=== PATIENT | female | born 1955 | race African-American/Black ===

== ENCOUNTER 2018-04-22 19:58 | Emergency (ER) | payer MEDICARE, OTHER ==
[2018-04-22 20:38] LABS: ADD MAN DIFF? NO
[2018-04-22] MEDS: SOD CHLORIDE 0.9% 1,000 ML IV (20:38)
[2018-04-22 20:40] LABS: BASOPHILS % 0.3 % (0.0-2.0); EOSINOPHILS # 0.1 10^3/ul (0.0-0.5); HEMATOCRIT 35.3 % (37.0-47.0); LYMPHOCYTES # 1.3 10^3/ul (0.8-2.9); MEAN CORPUSCULAR HEMOGLOBIN 25.2 pg (29.0-33.0); MEAN CORPUSCULAR HGB CONC 31.2 g/dl (32.0-37.0); MEAN PLATELET VOLUME 10.2 fl (7.4-10.4); MONOCYTE # 0.5 10^3/ul (0.3-0.9); NEUTROPHIL # 5.1 10^3/ul (1.6-7.5); NEUTROPHILS % 72.3 % (39.0-77.0); PLATELET COUNT 300 10^3/UL (140-415); RED BLOOD COUNT 4.36 10^6/ul (4.20-5.40); RED CELL DISTRIBUTION WIDTH 13.9 % (11.5-14.5)
== END 2018-04-22 21:29 | disposition home or self-care (01) ==
LOC: E/R 19:58
DX: R55 Syncope and collapse (principal); J45.909 Unspecified asthma, uncomplicated
CPT/HCPCS: 36415; 85025; 93005; 99284-25